=== PATIENT | male | born 1955 | race Caucasian/White ===

== ENCOUNTER 2024-11-01 16:29 | Inpatient (IN) ==
[2024-11-01 18:00] LABS: ABS Basophils 0.1 10^3/uL (0.0-0.1); ABS Eosinophils 0.3 10^3/uL (0.0-0.5); ABS Lymphocytes 1.7 10^3/uL (1.0-4.8); ABS Monocytes 0.5 10^3/uL (0.0-1.1); ABS Neutrophils 5.2 10^3/uL (1.5-7.6); Eosinophil % 4.3 %; Hematocrit 45.7 % (38-53); Hemoglobin 15.9 g/dL (13.2-16.3); Lymphocyte % 21.6 %; Mean Corpuscular Hemoglobin 31.9 pg (27-33); Mean Corpuscular Hgb Conc 34.7 g/dL (31-36); Mean Corpuscular Volume 91.8 fL (80-97); Mean Platelet Volume 8.4 fL (7.5-11.2); Nucleated Red Blood Cells % 0.1 %/100WBC (0.0-0.8); Platelet Count 254 10^3/uL (150-450); Red Blood Count 4.98 10^6/uL (4.06-5.63); Red Cell Distribution Width 12.8 % (12-17); White Blood Count 7.8 10^3/uL (3.6-10.2)
[2024-11-01 18:51] LABS: Albumin 4.5 g/dL (3.5-5.7); Albumin/Globulin Ratio 1.5 (1-3); Calcium 10.2 mg/dL (8.6-10.3); Potassium 4.4 mmol/L (3.5-5.0); Total Bilirubin 0.3 mg/dL (0.2-1.0); Total Protein 7.5 g/dL (6.4-8.9)
[2024-11-01 20:23] LABS: Creatinine, Serum 1.18 mg/dL (0.67-1.17); eGFR CKD-EPI 67.6 (>60)
[2024-11-01] MEDS: Iodixanol 320 (CONTRAST) 100 ML SDV IV ONE (21:43)
[2024-11-01] MEDS ORDERED: Sulfur Hexaflouride MICROSPHR 25 MG VIAL IV PRN (23:47)
[2024-11-02] MEDS: Insulin GLARGINE 100 un/ml 10 ml VIAL SUBCUT ONE (00:14)
[2024-11-02 00:16] LABS: HDL Cholesterol 46.4 mg/dL
[2024-11-02 06:42] LABS: ABS Eosinophils 0.4 10^3/uL (0.0-0.5); ABS Lymphocytes 1.8 10^3/uL (1.0-4.8); ABS Monocytes 0.6 10^3/uL (0.0-1.1); ABS Neutrophils 4.1 10^3/uL (1.5-7.6); ABS Nucleated RBC 0.01 10^3/ul; Eosinophil % 5.2 %; Hematocrit 42.9 % (38-53); Lymphocyte % 25.9 %; Mean Corpuscular Hemoglobin 32.1 pg (27-33); Mean Corpuscular Hgb Conc 34.9 g/dL (31-36); Mean Corpuscular Volume 91.9 fL (80-97); Mean Platelet Volume 8.3 fL (7.5-11.2); Nucleated Red Blood Cells % 0.1 %/100WBC (0.0-0.8); Platelet Count 228 10^3/uL (150-450); Red Blood Count 4.67 10^6/uL (4.06-5.63); Red Cell Distribution Width 12.7 % (12-17); White Blood Count 6.9 10^3/uL (3.6-10.2)
[2024-11-02 07:21] LABS: Calcium 9.2 mg/dL (8.6-10.3); Creatinine, Serum 1.03 mg/dL (0.67-1.17); Potassium 4.2 mmol/L (3.5-5.0); eGFR CKD-EPI 79.6 (>60)
[2024-11-02] MEDS: Enoxaparin 40 MG/0.4 ML SYR SUBCUT SCH (09:41)
[2024-11-02] MEDS: Empagliflozin 25 MG TAB PO SCH (09:41)
[2024-11-02] MEDS: Gadoteridol (CONTRAST) 279.3 MG/ML 10 ML IV ONE (20:58)
[2024-11-02] MEDS ORDERED: Gadoteridol (CONTRAST) 279.3 MG/ML 10 ML IV SCH (21:15)
[2024-11-03 13:54] VITALS: BP 119/67
== END 2024-11-03 16:26 | disposition home or self-care (01) | DRG 45 ==
LOC: ED 16:29 → EDHOLD 16:29 → OBSVTOIN 23:03 → MEDTELE 11-02 09:46
PROVIDERS: ADMIT Student in an Organized Health Care Education/Training Program; ATTEND Hospitalist